=== PATIENT | male | born 2000 | race Caucasian/White ===

== ENCOUNTER 2020-07-30 20:15 | Emergency (ER) | payer OTHER ==
[~2020-07-30] VITALS: Ht 195.6 cm; Wt 70.3 kg
[~2020-07-30 20:15] MED LIST: ALEVE220 M1 PO; BACLOFEN 10 MG10 MG; CARISOPRODOL 3350 MG PO; CLARITIN10 MG PO; DUEXIS 800-26.1 EACH PO; FLEXERIL PO; GABAPENTIN100 MG PO; HYDROCODON-ACE1 EAC7 PO; IBUPROFEN 600600 M1 PO; MOBIC15 MG PO; NAPROSYN500 MG PO; NEURONTIN 300300 M1 PO; NOHOMEMEDICATIONS; NORCO 5-325 TA1 EAC1 PO; NORCO 5-325 TA1 EACH PO; PHENERGAN 25 MG25 M1 PO; ROBAXIN 750 MG750 M1 PO; ULTRAM 50MG TAB50 MG PO; VICODIN ES 7.51 EACH PO; ZYRTEC10 MG
[2020-07-30 21:55] VITALS: BP 138/74
== END 2020-07-30 21:55 | disposition home or self-care (01) ==
LOC: M.ERS 20:15
DX: M25.532 Pain in left wrist (principal); Z88.6 Allergy status to analgesic agent